=== PATIENT | female | born 1985 | race Caucasian/White ===

== ENCOUNTER 2021-07-18 10:02 | Outpatient (RCR) | payer OTHER, SELFPAY | END 2021-07-30 23:59 | LOC: NS 10:02 | PROVIDERS: PCP Family Medicine; Visit Provider Family Medicine | DX: Z71.3 Dietary counseling and surveillance (principal); E66.9 Obesity, unspecified; Z68.43 Body mass index [BMI] 50.0-59.9, adult | CPT/HCPCS: 97802 ==

== ENCOUNTER 2021-08-23 11:30 | Outpatient (RCR) | payer OTHER, SELFPAY | END 2021-08-30 23:59 | LOC: NS 11:30 | PROVIDERS: PCP Family Medicine; Visit Provider Family Medicine | DX: Z71.3 Dietary counseling and surveillance (principal); E66.9 Obesity, unspecified; Z68.43 Body mass index [BMI] 50.0-59.9, adult | CPT/HCPCS: 97803 ==

== ENCOUNTER 2021-09-26 16:23 | Outpatient (RCR) | payer OTHER, SELFPAY | END 2021-09-29 23:59 | LOC: NS 16:23 | PROVIDERS: PCP Family Medicine; Visit Provider Family Medicine | DX: Z71.3 Dietary counseling and surveillance (principal); E66.9 Obesity, unspecified; Z68.43 Body mass index [BMI] 50.0-59.9, adult | CPT/HCPCS: 97803 ==

== ENCOUNTER 2021-11-22 09:00 | Outpatient (RCR) | payer OTHER, SELFPAY | END 2021-11-30 23:59 | LOC: NS 09:00 | PROVIDERS: PCP Family Medicine; Referring Provider Family Medicine; Visit Provider Family Medicine | DX: Z71.3 Dietary counseling and surveillance (principal); E66.9 Obesity, unspecified; Z68.43 Body mass index [BMI] 50.0-59.9, adult | CPT/HCPCS: 97803 ==

== ENCOUNTER 2021-12-07 11:05 | Outpatient (RCR) | payer OTHER, SELFPAY | END 2021-12-30 23:59 | LOC: NS 11:05 | PROVIDERS: PCP Family Medicine; Referring Provider Family Medicine; Visit Provider Family Medicine | DX: Z71.3 Dietary counseling and surveillance (principal); E66.9 Obesity, unspecified; Z68.43 Body mass index [BMI] 50.0-59.9, adult | CPT/HCPCS: 97803 ==

== ENCOUNTER 2022-01-24 11:30 | Outpatient (RCR) | payer OTHER, SELFPAY | END 2022-01-30 23:59 | LOC: NS 11:30 | PROVIDERS: PCP Family Medicine; Referring Provider Family Medicine; Visit Provider Family Medicine | DX: Z71.3 Dietary counseling and surveillance (principal); E66.9 Obesity, unspecified; Z68.43 Body mass index [BMI] 50.0-59.9, adult | CPT/HCPCS: 97803 ==

== ENCOUNTER 2022-02-15 11:24 | Outpatient (RCR) | payer OTHER, SELFPAY | END 2022-03-01 23:59 | LOC: NS 11:24 | PROVIDERS: PCP Family Medicine; Referring Provider Family Medicine; Visit Provider Family Medicine | DX: Z71.3 Dietary counseling and surveillance (principal); E66.9 Obesity, unspecified; Z68.43 Body mass index [BMI] 50.0-59.9, adult | CPT/HCPCS: 97803 ==

== ENCOUNTER 2022-03-07 10:29 | Outpatient (RCR) | payer OTHER, SELFPAY | END 2022-04-01 23:59 | LOC: NS 10:29 | PROVIDERS: PCP Family Medicine; Referring Provider Family Medicine; Visit Provider Family Medicine | DX: Z71.3 Dietary counseling and surveillance (principal); E66.9 Obesity, unspecified; Z68.43 Body mass index [BMI] 50.0-59.9, adult | CPT/HCPCS: 97803 ==

== ENCOUNTER 2022-04-19 11:00 | Outpatient (RCR) | payer OTHER, SELFPAY | END 2022-05-02 23:59 | LOC: NS 11:00 | PROVIDERS: PCP Family Medicine; Referring Provider Family Medicine; Visit Provider Family Medicine | DX: Z71.3 Dietary counseling and surveillance (principal); E66.9 Obesity, unspecified; Z68.43 Body mass index [BMI] 50.0-59.9, adult | CPT/HCPCS: 97803 ==

== ENCOUNTER 2022-05-10 11:01 | Outpatient (RCR) | payer OTHER, SELFPAY | END 2022-05-30 23:59 | LOC: NS 11:01 | PROVIDERS: PCP Family Medicine; Referring Provider Family Medicine; Visit Provider Family Medicine | DX: Z71.3 Dietary counseling and surveillance (principal); E66.9 Obesity, unspecified; Z68.43 Body mass index [BMI] 50.0-59.9, adult | CPT/HCPCS: 97803 ==

== ENCOUNTER 2022-06-06 11:22 | Outpatient (RCR) | payer OTHER, SELFPAY | END 2022-06-30 23:59 | LOC: NS 11:22 | PROVIDERS: PCP Family Medicine; Referring Provider Family Medicine; Visit Provider Family Medicine | DX: Z71.3 Dietary counseling and surveillance (principal); E66.9 Obesity, unspecified; Z68.43 Body mass index [BMI] 50.0-59.9, adult | CPT/HCPCS: 97803 ==

== ENCOUNTER 2022-07-27 13:30 | Outpatient (RCR) | payer OTHER, SELFPAY | END 2022-07-30 23:59 | LOC: NS 13:30 | PROVIDERS: PCP Family Medicine; Referring Provider Family Medicine; Visit Provider Family Medicine | DX: Z71.3 Dietary counseling and surveillance (principal); E66.9 Obesity, unspecified; Z68.30 Body mass index [BMI] 30.0-30.9, adult | CPT/HCPCS: 97803 ==

== ENCOUNTER → 2023-04-27 | Outpatient (CLI) | payer OTHER, SELFPAY ==
--- NOTE | 2023-04-27 10:15 | RAD_ITS ---
STUDY: X-RAY - LEFT FOOT CLINICAL: Female, 37 years old. pain over 3rd metatarsal TECHNIQUE: 3 view(s) of the foot. COMPARISON: None. FINDINGS: Normal talus, calcaneus, and tarsal bones. Normal visualized subtalar, talonavicular, calcaneocuboid, tarsal and tarsometatarsal articulations. There is very subtle periosteal reaction along the shaft of the third metatarsal most suggestive of stress fracture. Normal metatarsophalangeal joint of the great toe. Normal tibial and fibular sesamoid bones. Normal interphalangeal joint of the great toe. Normal phalanges of the great toe. Normal second through fifth metatarsophalangeal joints. Normal interphalangeal joints and phalanges of the lesser toes. The soft tissue structures are unremarkable. There is no demonstrated fracture. RAD/Foot min 3 Views IMPRESSION: Very subtle periosteal reaction along the shaft of the third metatarsal most suggestive of stress fracture. Electronically Signed: Luis Fernando Sarah MD at 22:33 EST ,
--- OUTSIDE RECORDS SUMMARY | 2023-04-27 10:41 | XMS RPT_ITS | CCD ---
Author Name Unknown Address [address] [place] [address] Organization [facility] Results Test Name Value Interpretation Reference Range Facil ity Progress note 03-29-2021 Note Date & Type Note Facility 03-29-2021 Note HNO ID: [id number] Author: Marisela Rothman MA Service: ? Author Type: Interactive Designer Type: Progress Notes Filed: 03/29/2021 12:17 PM Note Text: POPULATION HEALTH NAVIGATION OUTREACH Action/FYI Upon reviewing the patient's chart, it has been found the at the patient has not been seen within [facility] since 11/21/2015. PCP field has been updated to reflect No PCP in accordance to the Population Health Navigation Provider Offboarding Guidelines . Contact made with patient or family member? NO Pt identified by name and : NO Outreach Outcome/Action PCP field updated Reason for Outreach Attribution: Provider Off-boarding Payer: No coverage found. Care Gap Reviewed:: Reminder: Reminder note to check Health Maintenance for items below Health Maintenance items due: COVID-19 VACCINE(1) Never done DEPRESSION SCREENING Never done HEPATITIS C SCREENING Never done HIV SCREENING Never done PAP TESTING Never done HPV TESTING Never done INFLUENZA(1) Never done Advanced Directives Completed: Have you ever planned for future healthcare decisions with a power of litigation attorney associate, living will, or advance directives? Referrals: Message Sent to Practice: Navigation Signature: Marisela Rothman MA March 29, 2021 12:15 PM [facility] Clinical Note 03-29-2021 Note Date & Type Note Facility 03-29-2021 Note Patient Outreach (KELSEY TNAV) BAILEE OVIEDO ([id number]) 1985 F Date Time Provider Department 03/29/21 MARISELA ROTHMAN During your visit today, we recorded the following information about you: Marisela Rothman MA 03/29/2021 12:17 PM Signed POPULATION HEALTH NAVIGATION OUTREACH Action/FYI Upon reviewing the patient's chart, it has been found the at the patient has not been seen within [facility] since 11/21/2015. PCP field has been updated to reflect No PCP in accordance to the Population Health Navigation Provider Offboarding Guidelines . Contact made with patient or family member? NO Pt identified by name and : NO Outreach Outcome/Action PCP field updated Reason for Outreach Attribution: Provider Off-boarding Payer: No coverage found. Care Gap Reviewed:: Reminder: Reminder note to check Health Maintenance for items below Health Maintenance items due: COVID-19 VACCINE(1) Never done DEPRESSION SCREENING Never done HEPATITIS C SCREENING Never done HIV SCREENING Never done PAP TESTING Never done HPV TESTING Never done INFLUENZA(1) Never done Advanced Directives Completed: Have you ever planned for future healthcare decisions with a power of litigation attorney associate, living will, or advance directives? Referrals: Message Sent to Practice: Navigation Signature: Marisela Rothman MA March 29, 2021 12:15 PM Allergies As of Date: 03/29/2021 (No Known Allergies) Date Reviewed: 11/21/2015 Reviewed by: Le Parra (Ángel) Bobby - Fully Assessed Reason for Visit: Population Health Navigation Outreach [3910] Cmt: PCP Offboarding Prescriptions as of 03/29/2021 - predniSONE (DELTASONE) 10 mg tablet Take 6 tabs for 3 days, then 4 tabs for 3 days, then 2 tabs for 3 days then 1 tab for 3 days with food. - DIPHENHYDRAMINE HCL (BENADRYL ORAL) Take by mouth. - Norethindrone, Contraceptive, (NADIR) 0.35 mg tablet Take 1 tablet by mouth once daily. - oxyCODONE-acetaminophen 5-325 mg tablet Take 1-2 tablets by mouth every 4 hours as needed. - ibuprofen 600 mg tablet Take 1 tablet by mouth every 6 hours as needed. Problem List As Of Date 03/29/2021 Noted Resolved Large for gestational age [P08.1] 05/04/2013 Encounter Status:Closed by MARISELA ROTHMAN on 03/29/21 [facility] Summary Purpose Family History No Family History Records FoundNo Family History Records Found Advance Directives No Advanced Directives Records FoundNo Advanced Directives Records Found Additional Source Comments INFORMATION SOURCE (unrecogn ized section and content) DATE CREATED AUTHOR AUTHOR'S ORGANIZ ATION 10/18/2021 [facility] FOR RECORDS PERTAINING TO PATIENTS WHO ARE OR HAVE BEEN ENROLLED IN A CHEMICAL DEPENDENCY/SUBSTANCEABUSE PROGRAM, SOME INFORMATION MAY BE OMITTED. This clinical summary was aggregated from multiple sources. Caution should be exercised in using it in the provision of clinical care. This summary normalizes information from multiple sources, and as a consequence, information in this document may materially change the coding, format and clinical context of patient data. In addition, data may be omitted in some cases. CLINICAL DECISIONS SHOULD BE BASED ON THE PRIMARY CLINICAL RECORDS. [employer] provides no warranty or guarantee of the accuracy or completeness of information in this document.
== END | disposition home or self-care (01) ==
LOC: MTRAD 10:13
PROVIDERS: PCP Family Medicine; Referring Provider Family Medicine; Visit Provider Family Medicine
DX: M79.672 Pain in left foot (principal)
CPT/HCPCS: 73630

== ENCOUNTER → 2023-07-10 | Outpatient (CLI) | payer OTHER, SELFPAY ==
--- NOTE | 2023-07-10 13:10 | RAD_ITS ---
STUDY: X-RAY - LEFT FOOT CLINICAL: Female, 37 years old. FOLLOW UP STRESS FX TECHNIQUE: 3 view(s) of the foot. COMPARISON: 04/27/2023 FINDINGS: Normal talus, calcaneus, and tarsal bones. Normal visualized subtalar, talonavicular, calcaneocuboid, tarsal and tarsometatarsal articulations. Healing fracture of the shaft of the third metatarsal bone with abundant callus formation possibly consistent with a healing fatigue (stress) fracture. Normal metatarsophalangeal joint of the great toe. Normal tibial and fibular sesamoid bones. Normal interphalangeal joint of the great toe. Normal phalanges of the great toe. Normal second through fifth metatarsophalangeal joints. Normal interphalangeal joints and phalanges of the lesser toes. The soft tissue structures are unremarkable. RAD/Foot min 3 Views IMPRESSION: Suspect healing fatigue (stress) fracture of the shaft of the third metacarpal bone. Electronically Signed: Roderick Sparrow MD at 21:22 EDT ,
== END | disposition home or self-care (01) ==
LOC: MTRAD 13:08
PROVIDERS: PCP Family Medicine; Referring Provider Family Medicine; Visit Provider Family Medicine
DX: M79.672 Pain in left foot (principal)
CPT/HCPCS: 73630

== ENCOUNTER 2023-07-11 13:53 | Outpatient (RCR) | payer OTHER, SELFPAY | END 2023-07-31 23:59 | LOC: NS 13:53 | PROVIDERS: PCP Family Medicine; Referring Provider Family Medicine; Visit Provider Family Medicine | DX: Z71.3 Dietary counseling and surveillance (principal); E66.9 Obesity, unspecified; Z68.37 Body mass index [BMI] 37.0-37.9, adult | CPT/HCPCS: 97802 ==

== ENCOUNTER 2023-08-02 10:03 | Outpatient (RCR) | payer OTHER, SELFPAY | END 2023-08-31 23:59 | LOC: NS 10:03 | PROVIDERS: PCP Family Medicine; Referring Provider Family Medicine; Visit Provider Family Medicine | DX: Z71.3 Dietary counseling and surveillance (principal); E66.9 Obesity, unspecified; Z68.37 Body mass index [BMI] 37.0-37.9, adult | CPT/HCPCS: 97803 ==

== ENCOUNTER 2023-09-17 09:55 | Outpatient (RCR) | payer OTHER, SELFPAY | END 2023-09-30 23:59 | LOC: NS 09:55 | PROVIDERS: PCP Family Medicine; Referring Provider Family Medicine; Visit Provider Family Medicine | DX: Z71.3 Dietary counseling and surveillance (principal); E66.9 Obesity, unspecified; Z68.37 Body mass index [BMI] 37.0-37.9, adult | CPT/HCPCS: 97803 ==

== ENCOUNTER 2023-10-10 08:33 | Outpatient (RCR) | payer SELFPAY | END 2023-10-31 23:59 | LOC: NS 08:33 | PROVIDERS: PCP Family Medicine; Referring Provider Family Medicine; Visit Provider Family Medicine | DX: Z71.3 Dietary counseling and surveillance (principal); E66.9 Obesity, unspecified | CPT/HCPCS: 97803 ==